=== PATIENT | male | born 1955 | race Caucasian/White ===

== ENCOUNTER 2018-11-07 07:15 | Day surgery (SDC) | payer BC ==
[2018-11-07] MEDS ORDERED: PROPOFOL 10 MG/ML VIAL IV ONE (07:16)
[2018-11-07] MEDS ORDERED: LIDOCAINE 2% MDV (20MG/ML) 20ML VIAL IV ONE (07:16)
--- NOTE | 2018-11-08 09:50 | Operative Note ---
DATE OF SURGERY: 11/07/2018 OPERATION: COLONOSCOPY with cold snare polypectomy x2. PREOPERATIVE DIAGNOSIS: Personal history of colon polyps. POSTOPERATIVE DIAGNOSES: 1. Good quality colonic prep. 2. Moderate sigmoid diverticulosis. 3. Transverse colon polyp. 4. Ascending colon polyp. PROCEDURE: After informed consent was obtained from the patient, the patient was placed in the left lateral decubitus position in the endoscopy suite, sedated and monitored by the department of anesthesia. Digital rectal exam was unremarkable. A well-lubricated [id number] colonoscope was inserted into the rectum and advanced to the cecum. Preparation quality was good. The cecum, cecal bulb, ileocecal valve, and appendiceal orifice were identified and were unremarkable. The ascending colon revealed a sessile polyp approximately 4-5 mm in diameter removed with a cold snare. Minimal bleeding was noted. There was a 7-8 mm sessile polyp noted in the transverse colon removed in piecemeal fashion with a cold snare. Minimal bleeding was noted. The remainder of the transverse colon and descending colon were unremarkable. There were moderate diverticular changes in the sigmoid colon. The rectum was unremarkable in forward and J-turn views. The endoscope was straightened, the rectal ampulla deflated, and the endoscope was removed. RECOMMENDATIONS: The patient should follow a high-fiber diet. He will require repeat colonoscopy in 3-5 years pending tissue histology. As always, thank you for allowing me to participate in the healthcare of your patients. CC: DO CELI Ghotra
== END 2018-11-07 09:30 | disposition home or self-care (01) ==
LOC: HOP 07:15
PROVIDERS: ATTEND Internal Medicine Gastroenterology
DX: Z12.11 Encounter for screening for malignant neoplasm of colon (principal); Z86.010 Personal history of colon polyps; D12.3 Benign neoplasm of transverse colon; K63.5 Polyp of colon; K57.30 Diverticulosis of large intestine without perforation or abscess without bleeding